=== PATIENT | male | born 1955 | race African-American/Black ===

== ENCOUNTER 2016-12-15 17:38 | Emergency (ER) | payer OTHER ==
[~2016-12-15] VITALS: Ht 182.9 cm; Wt 63.6 kg
[2016-12-15] MEDS ORDERED: KEFL500C17 PO (17:49)
[2016-12-15] MEDS ORDERED: HYDR12.55 PO (17:49)
[2016-12-15] MEDS ORDERED: ACETAMINOPHEN TAB 650MG DOSE (2X325MG) PO ONE (19:00)
[2016-12-15 19:24] LABS: BASO % 0.4 % (0.0-1.0); EOS # 0.1 K/mm3 (0.0-0.50); EOS % 1.5 % (0.0-3.0); LARGE UNSTAINED CELL # 0.2 K/mm3 (0.0-0.4); LARGE UNSTAINED CELL % 3.4 % (0.0-4.0); LYMPH # 4.4 K/mm3 (1.5-4.5); LYMPH % 70.9 % (24.0-44.0); MEAN CORPUSCULAR HEMOGLOBIN 34.4 pg (27.0-33.0); MEAN CORPUSCULAR HGB CONC 35.3 g/dl (32.0-36.5); MEAN CORPUSCULAR VOLUME 97.3 fl (80.0-96.0); MONO # 0.2 K/mm3 (0.0-0.8); MONO % 3.3 % (0.0-5.0); NEUTROPHILS # 1.3 K/mm3 (1.8-7.7); NEUTROPHILS % 20.5 % (36.0-66.0); RED CELL DISTRIBUTION WIDTH 12.4 % (11.5-14.5); WHITE BLOOD COUNT 6.1 K/mm3 (4.0-10.0)
[2016-12-15 19:43] LABS: PLATELET COUNT, AUTOMATED 84 k/mm3 (150-450)
[2016-12-15 19:48] LABS: CALCIUM LEVEL 9.7 MG/DL (8.8-10.2); CREATININE FOR GFR 1.66 MG/DL (0.70-1.30); GLOMERULAR FILTRATION RATE 54.3 (>49); POTASSIUM SERUM 4.4 MEQ/L (3.5-5.1)
[2016-12-15 21:25] VITALS: BP 150/110
--- NOTE | 2016-12-16 13:16 | REP ---
LEFT TIBIA-FIBULA SERIES COMPLETE: 12/15/2016. Clinical history: Rule out osteomyelitis. Findings: Four views to encompass the entirety of the tibia and fibula were provided. I do not have any further history than that which is described above. The tibia and fibula show intact shafts. On one view only there is a subtle lucency in the soft tissues lateral to the fibula in the mid shaft region and suggested on the lateral view anteriorly with the region of the pretibial swelling. I do not see subjacent bony abnormality. There is no visible or displaced fracture or destructive lesion. Impression: 1. Subtle lucency in the soft tissues anterolateral aspect pretibial region suggesting a soft tissue ulceration. I do not see subjacent bony destructive lesion, cortical disruption, foreign body or other acute finding. No plain film evidence of osteomyelitis. Further evaluation may be needed with CT or MRI depending on clinical circumstances. Signed by Jose David Tatum MD 12/16/2016 08:58 A
== END 2016-12-15 21:29 | disposition home or self-care (01) ==
LOC: M ED 17:38
DX: I87.2 Venous insufficiency (chronic) (peripheral) (principal); I10 Essential (primary) hypertension; B19.20 Unspecified viral hepatitis C without hepatic coma; F17.210 Nicotine dependence, cigarettes, uncomplicated; Z79.899 Other long term (current) drug therapy